=== PATIENT | male | born 1945 | race Caucasian/White ===

== ENCOUNTER 2019-04-23 15:00 | Inpatient (IN) ==
[2019-04-23 15:55] LABS: VBG HCO3 30 mEq/L (21-27); VBG PCO2 59 mmHg (41-51); VBG PH 7.32 pH Units (7.32-7.42); VBG PO2 112 mmHg (25-50)
[2019-04-23 16:08] LABS: INR 1.5; Prothrombin Time 17.2 Seconds (9.4-12.1)
[2019-04-23 16:31] LABS: Troponin I 0.46 ng/mL (< 0.04)
[2019-04-23] MEDS ORDERED: Aspirin 81 MG TAB.CHEW PO ONE ×2 (16:37→17:00)
[2019-04-23] MEDS ORDERED: Aspirin 325 MG TABLET PO ONE (16:59)
[2019-04-23] MEDS ORDERED: Ipratropium/Albuterol Neb 3 ML IH ONE (17:02)
[2019-04-23] MEDS ORDERED: methylPREDNISolone 125 MG/2 ML VIAL IVP ONE (17:02)
[2019-04-23 17:15] LABS: Bilirubin,Urine Small (Negative); Blood,Urine Negative (Negative); Clarity,Urine Cloudy (Clear); Color,Urine Dark Yellow (Yellow); Glucose,Urine (UA) Normal (Normal); Ketones,Urine Negative (Negative); Leukocyte Esterase,Urine Negative (Negative); Nitrite,Urine Negative (Negative); Protein,Urine Trace mg/dL (Neg-Trace); Specific Gravity,Urine 1.019 (1.010-1.025); Urobilinogen,Urine Normal (Normal)
[2019-04-23 17:17] LABS: Bacteria,Urine None Seen per hpf (None-Few); RBC,Urine 0-3 per hpf (0-3); Squamous Epithelial Cell,Urine Many per lpf (None-Few); WBC,Urine 0-3 per hpf (0-3)
[2019-04-23 17:30] LABS: Amorphous Sediment,Urine Few per hpf (Few); Hyaline Casts,Urine Few per lpf (None-Few); Transitional Epi Cells,Urine Few per hpf (None-Few)
[2019-04-23] MEDS ORDERED: Naloxone 0.4 MG/ML INJ IVP PRN (19:29)
[2019-04-23] MEDS ORDERED: Lactulose Oral Soln 20 GM/30 ML UDC PO ONE (19:46)
[2019-04-23] MEDS ORDERED: Furosemide 40 MG/4 ML VIAL IVP ONE (20:02)
[2019-04-23] MEDS ORDERED: Albumin 25% 25gram/100mL 25 GM/100 ML IV.SOLN IVPB ONE (20:03)
[2019-04-23] MEDS ORDERED: Nitroglycerin 0.4 MG TAB.SUBL SL PRN (20:04)
[2019-04-23] MEDS ORDERED: *HR* OxyCODONE Immed Rel 5 MG TABLET PO PRN (20:15)
[2019-04-23] MEDS ORDERED: *HR* Digoxin 0.125 MG TABLET PO SCH (20:30)
[2019-04-23] MEDS: *HR* Buprenorphine HCl 2 MG SUBLINGUAL TABLET SL SCH (20:53)
[2019-04-23] MEDS ORDERED: Ampicillin/Sulbactam 3,000 MG in 0.9 % Sodium Chloride 100 ML IVPB SCH (21:00)
[2019-04-23] MEDS ORDERED: *HR* Heparin 5,000 UNIT/ML VIAL IVP PRN ×2 (21:02)
[2019-04-23] MEDS ORDERED: *HR* Heparin 5,000 UNIT/ML VIAL IVP ONE (21:02)
[2019-04-23] MEDS: Insulin LISPRO 300 UNITS/3 ML VIAL SQ SCH (21:04)
[2019-04-23] MEDS ORDERED: Heparin 25,000 UNIT/250 ML D5W 25,000 UNIT/250 ML IV.SOLN IVC SCH (21:15)
[2019-04-23] MEDS: Ipratropium/Albuterol Neb 3 ML IH SCH (21:55)
[2019-04-23] MEDS: Budesonide/Formoterol 80/4.5 1 PUFF INH IH SCH (21:55)
[2019-04-23] MEDS: Ampicillin/Sulbactam 3,000 MG in 0.9 % Sodium Chloride Mini Bag 100 ML IVPB SCH (22:02)
[2019-04-24] MEDS: Lactulose Oral Soln 20 GM/30 ML UDC PO SCH ×4 (02:15→20:43)
[2019-04-24] MEDS: *HR* Buprenorphine HCl 2 MG SUBLINGUAL TABLET SL SCH ×5 (02:15→20:42)
[2019-04-24] MEDS: Ampicillin/Sulbactam 3,000 MG in 0.9 % Sodium Chloride Mini Bag 100 ML IVPB SCH ×3 (02:15→17:48)
[2019-04-24 02:23] LABS: Hematocrit 32.1 % (37.5-50.1); Immature Granulocytes % 0.4 % (0-4); Lymphocytes # 0.3 K/mcL (0.6-4.6); Lymphocytes % 5.7 %; Mean Corpuscular HGB Conc 31.2 g/dL (31.6-35.5); Mean Corpuscular Hemoglobin 27.4 pg (28.0-33.3); Mean Corpuscular Volume 87.9 fL (83.0-100.0); Mean Platelet Volume 10.1 fL (9.4-12.4); Monocytes % 0.7 %; Neutrophils # 4.3 K/mcL (1.6-8.9); Platelet Count 244 K/mcL (140-400); Red Blood Count 3.65 M/mcL (4.19-5.50); Red Cell Distribution Width 20.6 % (11.5-14.5); Segmented Neutrophils % 93.2 %; White Blood Count 4.6 K/mcL (4.3-11.1)
[2019-04-24 02:29] LABS: INR 1.7; Prothrombin Time 18.8 Seconds (9.4-12.1)
[2019-04-24 02:45] LABS: Albumin 3.4 g/dL (3.5-5.7); Albumin/Globulin Ratio 1.2 (1.1-2.2); Bilirubin,Direct 0.6 mg/dL (0.0-0.2); Bilirubin,Indirect 0.6 mg/dL (0.0-1.0); Bilirubin,Total 1.2 mg/dL (0.3-1.0); Globulin 2.9 g/dL (2.4-3.5); Magnesium 2.3 mg/dL (1.6-2.6); Potassium 4.1 mEq/L (3.5-5.1); Total Protein 6.3 g/dL (6.4-8.9)
[2019-04-24] MEDS: Ipratropium/Albuterol Neb 3 ML IH SCH ×4 (03:46→21:59)
[2019-04-24] MEDS: MethylPREDNISolone 40 MG/ML VIAL IVP SCH ×2 (05:29→17:43)
[2019-04-24] MEDS ORDERED: Ampicillin/Sulbactam 3,000 MG in 0.9 % Sodium Chloride Mini Bag 100 ML IVPB SCH (07:13)
[2019-04-24] MEDS ORDERED: Insulin LISPRO 300 UNITS/3 ML VIAL SQ SCH (08:00)
[2019-04-24] MEDS ORDERED: D5% in Water 1,000 ML IVC PRN (08:20)
[2019-04-24] MEDS ORDERED: Dextrose Gel 15 GM/37.5 ML TUBE PO PRN ×2 (08:20)
[2019-04-24] MEDS ORDERED: *HR* Dextrose 50 % in Water (Syg) 50 ML SYRINGE IVP PRN (08:20)
[2019-04-24] MEDS: Insulin LISPRO 300 UNITS/3 ML VIAL SQ SCH ×4 (08:26→21:13)
[2019-04-24] MEDS: Isosorbide MONOnitrate (24 HR) 30 MG TAB.ER.24H PO SCH (08:26)
[2019-04-24] MEDS: Aspirin 81 MG TAB.CHEW PO SCH (08:31)
[2019-04-24] MEDS ORDERED: Perflutren Lipid Microsphere 1.3 ML in 0.9 % Sodium Chloride 8.7 ML IVP ONE (09:30)
[2019-04-24] MEDS: Budesonide/Formoterol 160/4.5 1 PUFF INH IH SCH ×2 (10:59→21:59)
[2019-04-24] MEDS: Budesonide/Formoterol 80/4.5 1 PUFF INH IH SCH (11:22)
[2019-04-24 12:41] LABS: Hematocrit 31.8 % (37.5-50.1); Hemoglobin 9.7 g/dL (12.9-16.9)
[2019-04-24] MEDS: *HR* Heparin 5,000 UNIT/ML VIAL SQ SCH (17:44)
[2019-04-25] MEDS: Albumin 25% 25gram/100mL 25 GM/100 ML IV.SOLN IVPB SCH ×2 (00:09→08:56)
[2019-04-25] MEDS: Ipratropium/Albuterol Neb 3 ML IH SCH ×5 (03:27→22:33)
[2019-04-25 05:38] LABS: Hematocrit 33.3 % (37.5-50.1); Hemoglobin 9.8 g/dL (12.9-16.9); Immature Granulocytes % 0.4 % (0-4); Lymphocytes # 0.3 K/mcL (0.6-4.6); Lymphocytes % 4.7 %; Mean Corpuscular HGB Conc 29.4 g/dL (31.6-35.5); Mean Corpuscular Hemoglobin 27.1 pg (28.0-33.3); Mean Platelet Volume 10.1 fL (9.4-12.4); Monocytes # 0.1 K/mcL (0.0-1.3); Monocytes % 1.9 %; Neutrophils # 6.5 K/mcL (1.6-8.9); Platelet Count 272 K/mcL (140-400); Red Blood Count 3.62 M/mcL (4.19-5.50); Red Cell Distribution Width 20.5 % (11.5-14.5)
[2019-04-25] MEDS: MethylPREDNISolone 40 MG/ML VIAL IVP SCH ×2 (05:56→18:17)
[2019-04-25] MEDS: Ampicillin/Sulbactam 3,000 MG in 0.9 % Sodium Chloride Mini Bag 100 ML IVPB SCH ×2 (05:56→18:15)
[2019-04-25] MEDS: *HR* Heparin 5,000 UNIT/ML VIAL SQ SCH ×2 (05:59→18:17)
[2019-04-25 06:00] LABS: Albumin 3.6 g/dL (3.5-5.7); Albumin/Globulin Ratio 1.2 (1.1-2.2); Potassium 4.1 mEq/L (3.5-5.1); Total Protein 6.6 g/dL (6.4-8.9)
[2019-04-25] MEDS: Lactulose Oral Soln 20 GM/30 ML UDC PO SCH ×3 (08:55→20:20)
[2019-04-25] MEDS: Aspirin 81 MG TAB.CHEW PO SCH (08:55)
[2019-04-25] MEDS: *HR* Buprenorphine HCl 2 MG SUBLINGUAL TABLET SL SCH ×4 (08:55→20:22)
[2019-04-25] MEDS: Isosorbide MONOnitrate (24 HR) 30 MG TAB.ER.24H PO SCH (08:57)
[2019-04-25] MEDS: Insulin LISPRO 300 UNITS/3 ML VIAL SQ SCH ×4 (08:58→22:09)
[2019-04-25] MEDS ORDERED: *HR* Digoxin 0.125 MG TABLET PO SCH (09:00)
[2019-04-25] MEDS: Budesonide/Formoterol 160/4.5 1 PUFF INH IH SCH ×2 (09:48→19:44)
[2019-04-25] MEDS ORDERED: Albumin 25% 25gram/100mL 25 GM/100 ML IV.SOLN IVPB ONE (11:44)
[2019-04-25] MEDS ORDERED: Furosemide 40 MG in 0.9 % Sodium Chloride 50 ML IV ONE (11:50)
[2019-04-25 21:51] LABS: Creatinine,Urine 99 mg/dL; Protein/Creatinine Ratio,Urine 0.63 mg/mg (0.00-0.20); Sodium, Urine < 10.0 mEq/L
[2019-04-26] MEDS: Ipratropium/Albuterol Neb 3 ML IH SCH ×4 (04:25→21:26)
[2019-04-26] MEDS: Ampicillin/Sulbactam 3,000 MG in 0.9 % Sodium Chloride Mini Bag 100 ML IVPB SCH ×2 (05:10→17:28)
[2019-04-26] MEDS: MethylPREDNISolone 40 MG/ML VIAL IVP SCH (05:11)
[2019-04-26] MEDS: *HR* Heparin 5,000 UNIT/ML VIAL SQ SCH ×2 (05:24→17:26)
[2019-04-26 09:34] LABS: Basophils % 0.1 %; Hematocrit 33.8 % (37.5-50.1); Hemoglobin 10.4 g/dL (12.9-16.9); Immature Granulocytes % 0.3 % (0-4); Lymphocytes # 0.4 K/mcL (0.6-4.6); Lymphocytes % 4.1 %; Mean Corpuscular HGB Conc 30.8 g/dL (31.6-35.5); Mean Corpuscular Hemoglobin 26.6 pg (28.0-33.3); Mean Corpuscular Volume 86.4 fL (83.0-100.0); Mean Platelet Volume 10.4 fL (9.4-12.4); Monocytes # 0.2 K/mcL (0.0-1.3); Monocytes % 2.6 %; Neutrophils # 8.4 K/mcL (1.6-8.9); Nucleated Red Blood Cells 0.6 /100 WBC (0); Platelet Count 344 K/mcL (140-400); Red Blood Count 3.91 M/mcL (4.19-5.50); Red Cell Distribution Width 20.5 % (11.5-14.5); Segmented Neutrophils % 92.9 %; White Blood Count 9.1 K/mcL (4.3-11.1)
[2019-04-26] MEDS: Isosorbide MONOnitrate (24 HR) 30 MG TAB.ER.24H PO SCH (09:35)
[2019-04-26] MEDS: Aspirin 81 MG TAB.CHEW PO SCH (09:35)
[2019-04-26] MEDS: *HR* Buprenorphine HCl 2 MG SUBLINGUAL TABLET SL SCH ×4 (09:35→22:21)
[2019-04-26] MEDS: Lactulose Oral Soln 20 GM/30 ML UDC PO SCH ×3 (09:38→22:21)
[2019-04-26] MEDS: Insulin LISPRO 300 UNITS/3 ML VIAL SQ SCH ×4 (09:41→22:20)
[2019-04-26] MEDS: Metoprolol XL (24 HR) Succ 25 MG TAB.ER.24H PO SCH (09:50)
[2019-04-26 09:52] LABS: Rheumatoid Factor 49 IU/mL (Less than 14)
[2019-04-26 09:54] LABS: Albumin 3.8 g/dL (3.5-5.7); Calcium 8.7 mg/dL (8.6-10.3); Digoxin 0.8 ng/mL (0.8-2.0); Phosphorous 6.3 mg/dL (2.7-4.5); Potassium 4.9 mEq/L (3.5-5.1)
[2019-04-26 10:17] LABS: Folate 12.5 ng/mL (3.0-16.0)
[2019-04-26 10:18] LABS: Vitamin B12 1488 pg/mL (250-1100)
[2019-04-26] MEDS: Budesonide/Formoterol 160/4.5 1 PUFF INH IH SCH ×2 (10:25→21:26)
[2019-04-26 10:59] LABS: Hepatitis B Surface Antigen Nonreactive (Nonreactive)
[2019-04-26 11:27] LABS: Hepatitis C Virus Antibody Nonreactive (Nonreactive)
[2019-04-26 11:28] LABS: Hepatitis B Core IgM Nonreactive (Nonreactive)
[2019-04-26 11:30] LABS: Hepatitis A Antibody IgM Nonreactive (Nonreactive)
[2019-04-27] MEDS: Ipratropium/Albuterol Neb 3 ML IH SCH ×4 (03:12→21:40)
[2019-04-27 05:04] LABS: Basophils % 0.1 %; Hematocrit 33.1 % (37.5-50.1); Immature Granulocytes % 0.5 % (0-4); Lymphocytes # 0.3 K/mcL (0.6-4.6); Lymphocytes % 3.6 %; Mean Corpuscular HGB Conc 30.2 g/dL (31.6-35.5); Mean Corpuscular Hemoglobin 26.4 pg (28.0-33.3); Mean Corpuscular Volume 87.3 fL (83.0-100.0); Monocytes # 0.5 K/mcL (0.0-1.3); Monocytes % 5.2 %; Neutrophils # 8.5 K/mcL (1.6-8.9); Nucleated Red Blood Cells 0.5 /100 WBC (0); Platelet Count 270 K/mcL (140-400); Red Blood Count 3.79 M/mcL (4.19-5.50); Red Cell Distribution Width 20.2 % (11.5-14.5); Segmented Neutrophils % 90.6 %; White Blood Count 9.4 K/mcL (4.3-11.1)
[2019-04-27 05:23] LABS: Albumin 3.6 g/dL (3.5-5.7); Calcium 8.4 mg/dL (8.6-10.3); Phosphorous 7.8 mg/dL (2.7-4.5); Potassium 4.7 mEq/L (3.5-5.1)
[2019-04-27] MEDS: Ampicillin/Sulbactam 3,000 MG in 0.9 % Sodium Chloride Mini Bag 100 ML IVPB SCH ×2 (06:33→18:16)
[2019-04-27] MEDS: *HR* Heparin 5,000 UNIT/ML VIAL SQ SCH ×2 (06:34→18:18)
[2019-04-27] MEDS ORDERED: Acetaminophen 325 MG TABLET PO ONE (06:51)
[2019-04-27] MEDS: Metoprolol XL (24 HR) Succ 25 MG TAB.ER.24H PO SCH (08:18)
[2019-04-27] MEDS: Aspirin 81 MG TAB.CHEW PO SCH (08:18)
[2019-04-27] MEDS: Isosorbide MONOnitrate (24 HR) 30 MG TAB.ER.24H PO SCH (08:19)
[2019-04-27] MEDS: *HR* Buprenorphine HCl 2 MG SUBLINGUAL TABLET SL SCH ×2 (08:19→13:00)
[2019-04-27] MEDS: Lactulose Oral Soln 20 GM/30 ML UDC PO SCH ×3 (08:19→20:54)
[2019-04-27] MEDS: Insulin LISPRO 300 UNITS/3 ML VIAL SQ SCH ×4 (08:21→21:33)
[2019-04-27] MEDS ORDERED: MethylPREDNISolone 40 MG/ML VIAL IVP SCH (09:00)
[2019-04-27] MEDS: Budesonide/Formoterol 160/4.5 1 PUFF INH IH SCH ×2 (10:39→21:41)
[2019-04-27] MEDS: Albumin 25% 25gram/100mL 25 GM/100 ML IV.SOLN IVPB SCH ×2 (16:16→23:27)
[2019-04-27] MEDS ORDERED: *HR* Buprenorphine HCl 2 MG SUBLINGUAL TABLET SL SCH (21:00)
[2019-04-27] MEDS ORDERED: Ondansetron ODT 4 MG TAB.RAPDIS SL PRN (21:07)
[2019-04-28] MEDS ORDERED: *HR* Promethazine 25 MG/ML VIAL IVP ONE (02:41)
[2019-04-28] MEDS ORDERED: Acetaminophen 325 MG TABLET PO ONE (02:48)
[2019-04-28 03:21] LABS: Hematocrit 35.4 % (37.5-50.1); Hemoglobin 10.7 g/dL (12.9-16.9); Immature Granulocytes % 0.8 % (0-4); Lymphocytes # 0.6 K/mcL (0.6-4.6); Mean Corpuscular HGB Conc 30.2 g/dL (31.6-35.5); Mean Corpuscular Volume 86.1 fL (83.0-100.0); Mean Platelet Volume 10.9 fL (9.4-12.4); Monocytes # 1.1 K/mcL (0.0-1.3); Monocytes % 8.1 %; Neutrophils # 11.8 K/mcL (1.6-8.9); Nucleated Red Blood Cells 0.9 /100 WBC (0); Platelet Count 293 K/mcL (140-400); Red Blood Count 4.11 M/mcL (4.19-5.50); Red Cell Distribution Width 20.3 % (11.5-14.5); Segmented Neutrophils % 87.1 %; White Blood Count 13.6 K/mcL (4.3-11.1)
[2019-04-28 03:34] LABS: INR 1.6; Prothrombin Time 17.9 Seconds (9.4-12.1)
[2019-04-28 03:47] LABS: Albumin/Globulin Ratio 1.7 (1.1-2.2); Bilirubin,Direct 0.8 mg/dL (0.0-0.2); Bilirubin,Indirect 0.6 mg/dL (0.0-1.0); Bilirubin,Total 1.4 mg/dL (0.3-1.0); Globulin 2.4 g/dL (2.4-3.5); Total Protein 6.4 g/dL (6.4-8.9)
[2019-04-28 03:48] LABS: Calcium 8.4 mg/dL (8.6-10.3); Potassium 5.6 mEq/L (3.5-5.1)
[2019-04-28] MEDS: Ipratropium/Albuterol Neb 3 ML IH SCH ×4 (04:04→22:25)
[2019-04-28] MEDS: *HR* Heparin 5,000 UNIT/ML VIAL SQ SCH ×2 (05:00→18:04)
[2019-04-28] MEDS: Ampicillin/Sulbactam 3,000 MG in 0.9 % Sodium Chloride Mini Bag 100 ML IVPB SCH (05:01)
[2019-04-28] MEDS: Metoprolol XL (24 HR) Succ 25 MG TAB.ER.24H PO SCH (09:03)
[2019-04-28] MEDS: Isosorbide MONOnitrate (24 HR) 30 MG TAB.ER.24H PO SCH (09:04)
[2019-04-28] MEDS: Lactulose Oral Soln 20 GM/30 ML UDC PO SCH ×3 (09:04→22:07)
[2019-04-28] MEDS: predniSONE 20 MG TABLET PO SCH (09:04)
[2019-04-28] MEDS: Aspirin 81 MG TAB.CHEW PO SCH (09:04)
[2019-04-28] MEDS: Insulin LISPRO 300 UNITS/3 ML VIAL SQ SCH ×4 (09:04→22:06)
[2019-04-28] MEDS: Albumin 25% 25gram/100mL 25 GM/100 ML IV.SOLN IVPB SCH (09:16)
[2019-04-28 09:38] LABS: Bilirubin,Urine Negative (Negative); Blood,Urine Large (Negative); Color,Urine Yellow (Yellow); Glucose,Urine (UA) Normal (Normal); Ketones,Urine Trace mg/dL (Negative); Leukocyte Esterase,Urine Negative (Negative); Nitrite,Urine Negative (Negative); PH,Urine 5.5 pH Units (5.0-8.0); Protein,Urine >=300 mg/dL (Neg-Trace); Specific Gravity,Urine 1.026 (1.010-1.025); Urobilinogen,Urine Normal (Normal)
[2019-04-28 09:40] LABS: Bacteria,Urine None Seen per hpf (None-Few); Squamous Epithelial Cell,Urine Many per lpf (None-Few); WBC,Urine 30-50 per hpf (0-3)
[2019-04-28 09:43] LABS: Clarity,Urine Cloudy (Clear)
[2019-04-28] MEDS ORDERED: 0.9 % Sodium Chloride 250 ML IVC PRN (09:56)
[2019-04-28] MEDS ORDERED: *HR* Heparin 10,000 UNIT/10 ML VIAL IV PRN (09:56)
[2019-04-28 09:59] LABS: Hyaline Casts,Urine Many per lpf (None-Few)
[2019-04-28] MEDS ORDERED: 0.9 % Sodium Chloride 1,000 ML PRIME SCH (10:00)
[2019-04-28 10:01] LABS: RBC,Urine TNTC per hpf (0-3)
[2019-04-28 10:02] LABS: Renal Epithelial Cells,Urine Moderate per hpf (None-Few); Transitional Epi Cells,Urine Few per hpf (None-Few)
[2019-04-28] MEDS ORDERED: *HR* Heparin 10,000 UNIT/10 ML VIAL IVP ONE (10:16)
[2019-04-28] MEDS ORDERED: *HR* Heparin 5,000 UNIT/ML VIAL ONE (10:20)
[2019-04-28] MEDS: Budesonide/Formoterol 160/4.5 1 PUFF INH IH SCH ×2 (11:33→22:25)
[2019-04-28] MEDS ORDERED: Acetaminophen IV 1,000 MG/100 ML INFUS..BTL IVPB ONE (21:38)
[2019-04-28] MEDS ORDERED: *HR* LORazepam 2 MG/ML VIAL IVP ONE (23:06)
[2019-04-28 23:09] LABS: VBG HCO3 23 mEq/L (21-27); VBG PCO2 51 mmHg (41-51); VBG PH 7.26 pH Units (7.32-7.42); VBG PO2 30 mmHg (25-50)
[2019-04-28 23:39] LABS: Hematocrit 34.7 % (37.5-50.1); Hemoglobin 10.4 g/dL (12.9-16.9); Mean Corpuscular Hemoglobin 25.9 pg (28.0-33.3); Mean Corpuscular Volume 86.5 fL (83.0-100.0); Mean Platelet Volume 10.8 fL (9.4-12.4); Platelet Count 215 K/mcL (140-400); Red Blood Count 4.01 M/mcL (4.19-5.50); Red Cell Distribution Width 20.3 % (11.5-14.5); White Blood Count 15.5 K/mcL (4.3-11.1)
[2019-04-28 23:46] LABS: Potassium 5.1 mEq/L (3.5-5.1)
[2019-04-29 00:52] LABS: Adenovirus Not Detected (Not Detect); Bordetella Pertussis Not Detected (Not Detect); Chlamydophila pneumoniae Not Detected (Not Detect); Coronavirus 229E Not Detected (Not Detect); Coronavirus HKU1 Not Detected (Not Detect); Coronavirus NL63 Not Detected (Not Detect); Coronavirus OC43 Not Detected (Not Detect); Human Metapneumovirus Not Detected (Not Detect); Human Rhinovirus/Enterovirus Not Detected (Not Detect); Influenza A Subtype 2009 H1 Not Detected (Not Detect); Influenza B Not Detected (Not Detect); Mycoplasma pneumoniae Not Detected (Not Detect); Parainfluenza Virus 1 Not Detected (Not Detect); Parainfluenza Virus 2 Not Detected (Not Detect); Parainfluenza Virus 3 Not Detected (Not Detect); Parainfluenza Virus 4 Not Detected (Not Detect); Respiratory Syncytial Virus Not Detected (Not Detect)
[2019-04-29 02:20] LABS: Basophils % 0.1 %; Hematocrit 34.8 % (37.5-50.1); Hemoglobin 10.7 g/dL (12.9-16.9); Immature Granulocytes % 0.4 % (0-4); Lymphocytes # 0.4 K/mcL (0.6-4.6); Lymphocytes % 2.5 %; Mean Corpuscular HGB Conc 30.7 g/dL (31.6-35.5); Mean Corpuscular Hemoglobin 26.8 pg (28.0-33.3); Mean Platelet Volume 10.7 fL (9.4-12.4); Monocytes % 6.4 %; Neutrophils # 14.2 K/mcL (1.6-8.9); Nucleated Red Blood Cells 0.8 /100 WBC (0); Platelet Count 220 K/mcL (140-400); Red Cell Distribution Width 20.2 % (11.5-14.5); Segmented Neutrophils % 90.6 %; White Blood Count 15.7 K/mcL (4.3-11.1)
[2019-04-29 02:39] LABS: Phosphorous 8.7 mg/dL (2.7-4.5); Potassium 5.4 mEq/L (3.5-5.1)
[2019-04-29 02:51] LABS: Albumin 3.7 g/dL (3.5-5.7); Albumin/Globulin Ratio 1.5 (1.1-2.2); Bilirubin,Direct 1.6 mg/dL (0.0-0.2); Bilirubin,Indirect 0.9 mg/dL (0.0-1.0); Bilirubin,Total 2.5 mg/dL (0.3-1.0); Globulin 2.4 g/dL (2.4-3.5); Total Protein 6.1 g/dL (6.4-8.9)
[2019-04-29] MEDS: Ipratropium/Albuterol Neb 3 ML IH SCH ×4 (03:58→21:58)
[2019-04-29] MEDS: *HR* Heparin 5,000 UNIT/ML VIAL SQ SCH ×2 (06:08→17:44)
[2019-04-29] MEDS ORDERED: 0.9 % Sodium Chloride 250 ML IVC PRN (07:46)
[2019-04-29] MEDS ORDERED: *HR* Heparin 10,000 UNIT/10 ML VIAL IV PRN (07:46)
[2019-04-29] MEDS ORDERED: 0.9 % Sodium Chloride 1,000 ML PRIME SCH (08:00)
[2019-04-29] MEDS: Aspirin 81 MG TAB.CHEW PO SCH (08:05)
[2019-04-29] MEDS: predniSONE 20 MG TABLET PO SCH (08:05)
[2019-04-29] MEDS: Isosorbide MONOnitrate (24 HR) 30 MG TAB.ER.24H PO SCH (08:06)
[2019-04-29] MEDS: Lactulose Oral Soln 20 GM/30 ML UDC PO SCH ×3 (08:07→20:40)
[2019-04-29 08:37] LABS: ANA IgG by ELISA NONE DETECTED (None Detected)
[2019-04-29] MEDS ORDERED: Albumin 25% 25gram/100mL 25 GM/100 ML IV.SOLN ONE (10:26)
[2019-04-29] MEDS ORDERED: Albumin 25% 25gram/100mL 25 GM/100 ML IV.SOLN IVPB ONE (10:27)
[2019-04-29] MEDS: Budesonide/Formoterol 160/4.5 1 PUFF INH IH SCH ×2 (10:39→21:58)
[2019-04-29] MEDS: Metoprolol XL (24 HR) Succ 25 MG TAB.ER.24H PO SCH (13:54)
[2019-04-29] MEDS: Insulin LISPRO 300 UNITS/3 ML VIAL SQ SCH ×4 (14:17→20:40)
[2019-04-29 16:02] LABS: Appearance of Peritoneal Fl BLOODY (Clear)
[2019-04-29 18:53] LABS: ABG Base Excess -4 mEq/L (-2 to 3); ABG HCO3 23 mEq/L (21-27); ABG Oxygen Saturation 100 % (95-98); ABG PCO2 47 mmHg (35-45); ABG PO2 343 mmHg (85-104); ABG TCO2 25 mEq/L (20-26); Blood Gas VT 550 cc
[2019-04-30] MEDS ORDERED: Haloperidol Lactate 5 MG/ML VIAL IVP PRN (00:44)
[2019-04-30 00:55] LABS: Alpha 2 Globulin (PEP) 0.52 g/dL (0.48-1.05); Beta Globulin (PEP) 0.68 g/dL (0.48-1.10)
[2019-04-30] MEDS: Ipratropium/Albuterol Neb 3 ML IH SCH ×3 (03:43→15:20)
[2019-04-30] MEDS: *HR* Heparin 5,000 UNIT/ML VIAL SQ SCH ×2 (06:05→17:15)
[2019-04-30] MEDS ORDERED: 0.9 % Sodium Chloride 500 ML IVC ONE (06:50)
[2019-04-30] MEDS ORDERED: 0.9 % Sodium Chloride 500 ML ONE (06:53)
[2019-04-30] MEDS: Insulin LISPRO 300 UNITS/3 ML VIAL SQ SCH ×3 (07:35→17:15)
[2019-04-30] MEDS ORDERED: Albumin 25% 25gram/100mL 25 GM/100 ML IV.SOLN ONE (07:43)
[2019-04-30] MEDS ORDERED: 0.9 % Sodium Chloride 250 ML ONE (07:46)
[2019-04-30] MEDS ORDERED: *HR* Norepinephrine 4 MG/4 ML VIAL IVC ONE (07:46)
[2019-04-30 07:50] LABS: ABG Base Excess -4 mEq/L (-2 to 3); ABG HCO3 23 mEq/L (21-27); ABG Oxygen Saturation 98 % (95-98); ABG PCO2 52 mmHg (35-45); ABG PH 7.26 pH Units (7.32-7.45); ABG PO2 130 mmHg (85-104); ABG TCO2 25 mEq/L (20-26)
[2019-04-30] MEDS: Norepinephrine 4 MG in 0.9 % Sodium Chloride 250 ML IVC SCH ×2 (07:50→13:56)
[2019-04-30] MEDS: Isosorbide MONOnitrate (24 HR) 30 MG TAB.ER.24H PO SCH (08:27)
[2019-04-30] MEDS: Lactulose Oral Soln 20 GM/30 ML UDC PO SCH (08:27)
[2019-04-30] MEDS: Aspirin 81 MG TAB.CHEW PO SCH (08:27)
[2019-04-30] MEDS: predniSONE 20 MG TABLET PO SCH (08:27)
[2019-04-30] MEDS: Metoprolol XL (24 HR) Succ 25 MG TAB.ER.24H PO SCH (08:28)
[2019-04-30 08:33] LABS: IFE Reflexed NOT DONE
[2019-04-30] MEDS: Budesonide/Formoterol 160/4.5 1 PUFF INH IH SCH (08:54)
[2019-04-30 09:30] LABS: INR 3.5; Prothrombin Time 40.4 Seconds (9.4-12.1)
[2019-04-30 09:31] LABS: Albumin 3.4 g/dL (3.5-5.7); Calcium 6.9 mg/dL (8.6-10.3); Phosphorous 7.8 mg/dL (2.7-4.5); Potassium 5.2 mEq/L (3.5-5.1)
[2019-04-30 09:43] LABS: Troponin I 1.6 ng/mL (< 0.04)
[2019-04-30] MEDS ORDERED: cefTRIAXone 1,000 MG in Water for inj. (sterile) 10 ML IVP SCH (10:00)
[2019-04-30 13:53] LABS: Basophils % 0.1 %; Hematocrit 36.7 % (37.5-50.1); Hemoglobin 10.9 g/dL (12.9-16.9); Immature Granulocytes % 0.9 % (0-4); Lymphocytes # 0.4 K/mcL (0.6-4.6); Lymphocytes % 1.9 %; Mean Corpuscular HGB Conc 29.7 g/dL (31.6-35.5); Mean Corpuscular Hemoglobin 26.3 pg (28.0-33.3); Mean Corpuscular Volume 88.6 fL (83.0-100.0); Monocytes # 0.6 K/mcL (0.0-1.3); Monocytes % 2.8 %; Neutrophils # 20.3 K/mcL (1.6-8.9); Nucleated Red Blood Cells 1.8 /100 WBC (0); Platelet Count 196 K/mcL (140-400); Red Blood Count 4.14 M/mcL (4.19-5.50); Red Cell Distribution Width 20.8 % (11.5-14.5); Segmented Neutrophils % 94.3 %; White Blood Count 21.6 K/mcL (4.3-11.1)
[2019-04-30] MEDS ORDERED: *HR* LORazepam 2 MG/ML VIAL IVP PRN (14:52)
[2019-04-30] MEDS ORDERED: *HR* FentaNYL (PF) 100 MCG/2 ML VIAL IVP PRN (14:54)
[2019-04-30] MEDS ORDERED: FentaNYL (PF) 1,000 MCG in 0.9 % Sodium Chloride 80 ML IVC SCH (15:00)
[2019-04-30 22:17] VITALS: BP 48/34
[2019-05-01 09:46] LABS: AFP Tumor Marker Non-Pregnant 2 ng/mL (0-9)
[2019-05-01 09:59] LABS: F-Actin (sm muscle) Ab IgG 7 Units (0-19); Immunoglobulin A (CELIAC) 279 mg/dL (68-408); Immunoglobulin G Subclass 1 575 mg/dL (240-1118); Immunoglobulin G Subclass 2 200 mg/dL (124-549); Immunoglobulin G Subclass 3 42 mg/dL (21-134); Immunoglobulin G Subclass 4 18 mg/dL (1-123); Serine Protease-3 Antibody 1 AU/mL (0-19)
[2019-05-01 15:15] LABS: Tissue Transglutaminase IgA 1 U/mL (0-3)
[2019-05-02 20:18] LABS: A1A SZ Specimen WHOLE BLOOD; Alpha-1-Antitrypsin S Allele NEGATIVE; Alpha-1-Antitrypsin Z Allele NEGATIVE
[2019-05-03 06:50] LABS: Alpha-1-Antitrypsin 210 mg/dL (90-200)
== END 2019-04-30 23:55 | disposition expired ==
LOC: EMEROOARM 15:00 → 2ANU 15:00 → SUATTDRO 19:29 → 2ANU 04-26 16:00 → ICNU 04-29 20:28 → 2ANU 04-30 23:10
PROVIDERS: ADMIT Internal Medicine; ATTEND Internal Medicine